=== PATIENT | male | born 1975 | race Two or more races ===

== ENCOUNTER 2024-06-26 20:44 | Inpatient (IN) | payer BC, SELFPAY ==
[2024-06-26 20:45] VITALS: PULSE 102; RESP 18; O2SAT 99
--- NOTE | 2024-06-26 20:45 | PC.NURSE ---
PT BROUGHT TO ER FROM HOME VIA AMBULANCE, PT C/O VOMITING, PT RECENTLY DIAGNOSE OF DIABETES, PT INFORMED ME THAT HE IS BEEN DRINKING A LOT OF WATER ,MILK,AND GATORADE. NO C/O PAIN, NOT ON RESPIRATORY DISTRESS.
[2024-06-26 20:48] VITALS: BMI 29.8
[2024-06-26 21:00] VITALS: BP 155/96; PULSE 98; RESP 18; TEMP 36.9; O2SAT 97
--- NOTE | 2024-06-26 21:09 | PD.EDADULT ---
ED General RME/HPI General Chief complaint: Nausea/Vomiting/Diarrhea Stated complaint: VOMITING Time Seen by Provider: 06/26/24 21:04 Arrival date/time: 06/26/24 20:44 CC: Nausea vomiting HPI patient has been feeling poorly for the last week with excessive urination and thirst, and then started vomiting today. Patient is a diabetic taking oral diabetic medications denies fever chills shortness of breath or difficulty breathing. Related Data Home Medications ?Medication ?Instructions ?Recorded ?Confirmed allopurinol 300 mg tablet 300 mg PO BID 03/06/20 06/26/24 colchicine 0.6 mg tablet 0.6 mg PO BID 03/06/20 06/26/24 empagliflozin 25 mg tablet 25 mg PO DAILY 06/26/24 06/26/24 (Jardiance) glyburide 5 mg tablet 5 mg PO BID 06/26/24 06/26/24 indomethacin 75 mg 75 mg PO DAILY 06/26/24 06/26/24 capsule,extended release insulin lispro 100 unit/mL 10 unit subcut TID 06/26/24 06/26/24 subcutaneous pen (Humalog KwikPen (U-100) Insulin) metformin 1,000 mg tablet 1,000 mg PO BID 06/26/24 06/26/24 semaglutide 2 mg/dose (8 mg/3 mL) 2 mg subcut QWEEK 06/26/24 06/26/24 subcutaneous pen injector (Ozempic) Allergies Allergy/AdvReac Type Severity Reaction Status Date / Time No Known Allergies Allergy Verified 03/06/20 08:13 Review of Systems Review of Systems Narrative Review of Systems: GEN: No fever, no chills, no weight loss EYES: No discharge, no visual changes, no pain HEENT: No ear pain, no congestion, no sore throat PULM: No shortness of breath, no cough, no congestion CV: No chest pain, no dyspnea on exertion, no palpitations GI: + nausea, + vomiting, no diarrhea, no pain, no constipation : No frequency, no urgency, no dysuria MUSC/SKEL: No joint pain, no back pain SKIN: No rash PSYCH: No hallucinations, no depression HEME/LYMPH: No easy bleeding or bruising tendencies NEURO: No weakness, no headache Past Medical History Past Medical History CARDIAC: Negative Congestive Heart Failure RESPIRATORY: Negative Chronic Obstructive Pulmonary Disease (COPD) GENITOURINARY: Negative Renal Disease MUSCULOSKELETAL: Positive Gout ENDOCRINE: Negative Diabetes Mellitus Type 1 or Diabetes Mellitus Type 2 Social History SMOKING STATUS: Never smoker ED Exam Narrative Physical exam: [General: In mild discomfort not in any acute distress Head normocephalic HEENT: Eyes pupils are PERRLA EOMs are intact, mouth: [place] dry swallow symmetrical phonation is normal. All other subsystems of HEENT are within acceptable limits Neck is supple nontender Chest equal chest rise nontender to palpation Respiratory: Clear to auscultation no wheezes crackles or rubs CV: Rate rhythm is regular no murmurs rubs or clicks Abdomen is soft nontender no masses positive bowel sounds all 4 quadrants Back: No CVA tenderness no spinous process tenderness from cervical spine thoracic and lumbar spine Skin: Intact no petechiae rash induration ulceration or crepitus Extremities: Moving all extremity against resistance cap refill less than 2 seconds neurosensory intact Neuro: Awake alert oriented x3 Glascow coma 15 no focal deficits] Course Quality Measures none Orders Category Date Time Status Admit to Inpatient Status Routine Admission 06/26/24 22:06 Active Patient Condition Routine Admission 06/26/24 22:06 Ordered Bedside Blood Glucose Q1H Care 06/26/24 22:08 Active Parts Cataloguer Q4H Care 06/26/24 22:08 Active DKA Protocol QSHIFT Care 06/26/24 22:08 Active Fingerstick [Bedside Blood Glucose] NOW Care 06/26/24 21:17 Active Intake and Output Q1H Care 06/26/24 22:15 Ordered Intake and Output Q1H Care 06/26/24 23:15 Ordered Notify provider NEEDED Care 06/26/24 22:08 Active Saline [Insert IV] NOW Care 06/26/24 21:07 Active Referral Registered Dietitian Routine Cons 06/26/24 22:08 Active XR chest 1V portable Stat Exams 06/26/24 22:08 Ordered Arterial Blood Gas AM DRAW Lab 06/27/24 05:00 Ordered Beta Hydroxybutyrate DAILY Lab 06/28/24 09:00 Ordered Beta Hydroxybutyrate DAILY Lab 06/29/24 09:00 Ordered Beta Hydroxybutyrate DAILY Lab 06/30/24 09:00 Ordered Beta Hydroxybutyrate Stat Lab 06/26/24 21:13 Completed Blood Culture (Lab) Routine Lab 06/26/24 22:08 Ordered CBC DAILY Lab 06/28/24 09:00 Ordered CBC DAILY Lab 06/29/24 09:00 Ordered CBC DAILY Lab 06/30/24 09:00 Ordered CBC DAILY Lab 07/01/24 09:00 Ordered CBC DAILY Lab 07/02/24 09:00 Ordered CBC Stat Lab 06/26/24 21:13 Completed CMP [Comprehensive Metabolic Panel] Stat Lab 06/26/24 21:13 Completed Drug Screen,Urine Stat Lab 06/26/24 21:13 Completed Glycohemoglobin w (eAG) AM DRAW Lab 06/27/24 05:00 Ordered LDH (Lactate Dehydrogenase) AM DRAW Lab 06/27/24 05:00 Ordered Lactate (Lactic Acid) Q4H Lab 06/27/24 02:15 Ordered Lactate (Lactic Acid) Q4H Lab 06/27/24 06:15 Ordered Lactate (Lactic Acid) Q4 Lab 06/27/24 10:15 Ordered Lactate (Lactic Acid) Q4 Lab 06/27/24 14:15 Ordered Lactate (Lactic Acid) Q4 Lab 06/27/24 18:15 Ordered Lactate (Lactic Acid) Q4 Lab 06/27/24 22:15 Ordered Lactate (Lactic Acid) Q4 Lab 06/28/24 02:15 Ordered Lactate (Lactic Acid) Q4 Lab 06/28/24 06:15 Ordered Lactate (Lactic Acid) Q4 Lab 06/28/24 10:15 Ordered Lactate (Lactic Acid) Q4 Lab 06/28/24 14:15 Ordered Lactate (Lactic Acid) Q4 Lab 06/28/24 18:15 Ordered Lactate (Lactic Acid) Q4 Lab 06/28/24 22:15 Ordered Lipase Stat Lab 06/26/24 21:13 Completed MG [Magnesium] Stat Lab 06/26/24 21:13 Completed Magnesium Q4H Lab 06/27/24 02:15 Ordered Magnesium Q4H Lab 06/27/24 06:15 Ordered Magnesium Q4H Lab 06/27/24 10:15 Ordered Magnesium Q4H Lab 06/27/24 14:15 Ordered Magnesium Q4H Lab 06/27/24 18:15 Ordered Magnesium Q4H Lab 06/27/24 22:15 Ordered Magnesium Q4H Lab 06/28/24 02:15 Ordered Magnesium Q4H Lab 06/28/24 06:15 Ordered Magnesium Q4H Lab 06/28/24 10:15 Ordered Magnesium Q4H Lab 06/28/24 14:15 Ordered Magnesium Q4H Lab 06/28/24 18:15 Ordered Magnesium Q4H Lab 06/28/24 22:15 Ordered Phosphorous Q4H Lab 06/27/24 02:15 Ordered Phosphorous Q4H Lab 06/27/24 06:15 Ordered Phosphorous Q4H Lab 06/27/24 10:15 Ordered Phosphorous Q4H Lab 06/27/24 14:15 Ordered Phosphorous Q4H Lab 06/27/24 18:15 Ordered Phosphorous Q4H Lab 06/27/24 22:15 Ordered Phosphorous Q4H Lab 06/28/24 02:15 Ordered Phosphorous Q4H Lab 06/28/24 06:15 Ordered Phosphorous Q4 Lab 06/28/24 10:15 Ordered Phosphorous Q4 Lab 06/28/24 14:15 Ordered Phosphorous Q4 Lab 06/28/24 18:15 Ordered Phosphorous Q4 Lab 06/28/24 22:15 Ordered Renal Function Panel Q4 Lab 06/27/24 02:15 Ordered Renal Function Panel Q4 Lab 06/27/24 06:15 Ordered Renal Function Panel Q4 Lab 06/27/24 10:15 Ordered Renal Function Panel Q4 Lab 06/27/24 14:15 Ordered Renal Function Panel Q4 Lab 06/27/24 18:15 Ordered Renal Function Panel Q4 Lab 06/27/24 22:15 Ordered Renal Function Panel Q4 Lab 06/28/24 02:15 Ordered Renal Function Panel Q4 Lab 06/28/24 06:15 Ordered Renal Function Panel Q4 Lab 06/28/24 10:15 Ordered Renal Function Panel Q4 Lab 06/28/24 14:15 Ordered Renal Function Panel Q4 Lab 06/28/24 18:15 Ordered Renal Function Panel Q4 Lab 06/28/24 22:15 Ordered Urinalysis Stat Lab 06/26/24 21:13 Completed VBG [Venous Blood Gas] Stat Lab 06/26/24 21:13 Completed Colchicine Med 06/27/24 09:00 Ordered 0.6 mg PO BID D5 LR 250ml/hr Med 06/26/24 22:06 Ordered Dextrose 5%-Lactated Ringers [D5-Lr] 1,000 ml IV 250 mls/hr Dextrose 50% Syr [D50w Syringe Abboject] Med 06/26/24 22:06 Ordered 25 ml IV PRNMRX1 PRN Enoxaparin [Lovenox] Med 06/27/24 09:00 Ordered 40 mg SC QDAY INSULIN REG DRIP 100 UNIT in PRE-MIXED @ 0.1 UNIT/KG/HR Med 06/26/24 22:06 Ordered (100ml) Pre-Mixed [Pre-mixed Bag] 1 bag Insulin Reg 100 Units/100 ml [Myxredlin] 100 unit IV 0.1 unit/kg/hr Insulin Reg 100 Units/100 ml [Myxredlin] Med 06/26/24 22:05 Active 100 unit in 100 ml IV 0.1 unit/kg/hr Insulin Regular Med 06/26/24 22:06 Once 8.4 unit IV X1 ONE KCL 20 mEq/L in D5LR Med 06/26/24 22:06 Ordered KCL 20 mEq/L in D5-LR 20 meq in 1,000 ml IV 250 mls/hr KCL 20 mEq/L in LR Med 06/26/24 22:06 Ordered Ringers Lactated 1000 ml [Lactated Ringers] 1,000 ml Pot Chl Additive [KCl Additive] 20 meq IV 250 mls/hr KCL 40 mEq/L in D5LR Med 06/26/24 22:06 Ordered Dextrose 5%-Lactated Ringers [D5-Lr] 1,000 ml Pot Chl Additive [KCl Additive] 40 meq IV 250 mls/hr KCL 40 mEq/L in LR Med 06/26/24 22:06 Ordered Ringers Lactated 1000 ml [Lactated Ringers] 1,000 ml Pot Chl Additive [KCl Additive] 40 meq IV 250 mls/hr LR 250ml/hr Med 06/26/24 22:06 Ordered Ringers Lactated 1000 ml [Lactated Ringers] 1,000 ml IV 250 mls/hr Magnesium Sulfate 2g/50mL Med 06/26/24 22:06 Ordered Magnesium Sulfate 2 GM Ivpb [Magnesium Sulfate Ivpb] 2 gm in 50 ml IV 25 mls/hr POT PHOS 15 mMol in NS 250 ML [Pot Phos 15 mMol in NS Med 06/26/24 22:06 Ordered 250 ml] 15 mmol in 250 ml IV PRN POTASSIUM CHL 10 mEq IVPB [Kcl Ivpb] Med 06/26/24 22:06 Active 10 meq in 100 ml IV 100 mls/hr POTASSIUM CHL 10 mEq IVPB [Kcl Ivpb] Med 06/26/24 22:06 Ordered 10 meq in 100 ml IV PRN Pantoprazole Inj [Protonix Inj] Med 06/27/24 09:00 Ordered 40 mg IVP QDAY Sodium Bicarb 8.4% SYR Med 06/26/24 22:06 Ordered 50 ml IV PRN PRN Sodium Chloride 0.9% 1000 ml [Ns] 1,000 ml Med 06/26/24 21:12 Active IV 250 mls/hr Sodium Chloride 0.9% 1000 ml [Ns] 1,000 ml Med 06/26/24 21:08 Discontinued IV 999 mls/hr Sodium Chloride 0.9% 1000 ml [Ns] 1,000 ml Med 06/26/24 21:08 Discontinued IV 999 mls/hr Sodium Chloride 0.9% 250 ml [Ns] 250 ml Med 06/26/24 22:06 Ordered Sod Phos Additive [NaPhos Additive] 15 mmol IV 62.5 mls/hr allopurinoL [Zyloprim] Med 06/27/24 09:00 Ordered 300 mg PO BID mg Hyd/Al Hyd/Ellis Susp [Maalox Susp] Med 06/26/24 22:06 Active 30 ml PO Q4HR PRN Code Status Routine Oth 06/26/24 22:06 Ordered Oxygen Delivery PRN RT 06/26/24 22:06 Active Vital Signs Vital signs: Vital Signs Temperature 98.4 F 06/26/24 21:00 Pulse Rate 98 06/26/24 21:00 Respiratory Rate 18 06/26/24 21:00 Blood Pressure 155/96 H 06/26/24 21:00 Pulse Oximetry (%) 97 06/26/24 21:00 Oxygen Delivery Method Room Air 06/26/24 21:00 [facility] Patient data External records reviewed:: [facility] previous records Clinical information provided by:: patient Social determinants that could affect healthcare access:: none Patient has the following chronic illnesses:: Type 2 diabetes How is presenting disease/condition affected by chronic disease/condition?: exacerbated by Evaluation data The following diagnostics were reviewed and interpreted by me:: lab results, radiology exam(s) and EKG tracing(s) Lab and/or radiology exams considered but not ordered:: CBC shows no acute leukocytosis anemia thrombocytopenia CMP shows pseudohyponatremia at 126 potassium of 4.8 chloride of 92, CO2 of 15.7 BUN of 23 creatinine 1.5 glucose of 789. Calculated gap of 23 VBG shows a pH of 7.28 pCO2 35 pO2 65 with a base deficit of 10. Beta hydroxybutyrate of 3.9 Urine is negative for UTI UDS is negative. Interpretation Summary: Patient is an early DKA, patient's case discussed with Dr. Bhatt for auxiliary engineer who agrees to accept the patient for admission. Medications Medications considered but not ordered:: None Medication administrations:: Medication Administration History Al Hydrox/Mg Hydrox/Simethicone (Mg Hyd/Al Hyd/Ellis (Maalox Reg) Susp 30 Ml Udc) 30 ml PO Q4HR PRN PRN Reason: Heartburn or Upset Stomach Stop: 07/26/24 22:05 Enoxaparin Sodium (Enoxaparin Sod Inj 40 Mg/0.4 Ml Syringe) 40 mg SC QDAY [facility] Stop: 07/11/24 08:59 Sodium Chloride (Ns) 1,000 mls @ 250 mls/hr IV .Q4H SARANYA Stop: 07/26/24 21:11 Insulin Human Regular (Myxredlin) 100 unit in 100 mls @ 8.392 mls/hr IV .[id number] PRN; Protocol PRN Reason: PER PROTOCOL Stop: 07/26/24 22:04 Potassium Chloride (Kcl Ivpb) 10 meq in 100 mls @ 100 mls/hr IV .Q1H PRN PRN Reason: IF POTASSIUM LESS THAN 3.3 Stop: 07/26/24 22:05 Pantoprazole Sodium (Pantoprazole Inj 40 Mg Vial) 40 mg IVP QDAY [facility] Stop: 07/27/24 08:59 Discontinued Medications Sodium Chloride (Ns) 1,000 mls @ 999 mls/hr IV .Q1H1M ONE Stop: 06/26/24 22:08 Last Admin: 06/26/24 21:12 Dose: 999 mls/hr Documented By: EMY Sodium Chloride (Ns) 1,000 mls @ 999 mls/hr IV .Q1H1M ONE Stop: 06/26/24 22:08 Last Admin: 06/26/24 21:15 Dose: 999 mls/hr Documented By: None Consultations Consultation(s) initiated? (list below): No Diagnosis Differential Diagnosis ED Complaint MDM: DKA hyperglycemia hypoglycemia Most likely diagnosis given after review of the tests above:: DKA Admission Indicated Admission indicated?: indicated Explain why admission is indicated or not indicated:: Requires intensive care monitoring Admission Request Was there a request for admission?: No Disposition Plan Disposition Plan: Admit Medical Decision Making Differential Diagnosis Differential Diagnosis: DKA hyperglycemia hypoglycemia Lab Data 06/26/24 21:13 06/26/24 21:13 Labs: Lab Results 06/26/24 Range/Units 21:13 WBC 8.3 (3.8-10.6) Thou/mm3 RBC 5.27 (4.50-5.90) Miln/mm3 Hgb 15.0 (13.5-16.0) g/dL Hct 42.1 (41.0-53.0) % MCV 80 (80-100) fL MCH 28.5 (25.0-35.0) pg MCHC 35.6 (31.0-37.0) g/dl RDW Std Deviation 34.6 L (35.1-43.9) fL Plt Count 240 (140-440) Thou/mm3 Neut % (Auto) 86 H (37-80) % Lymph % (Auto) 10 (10-50) % [place] % (Auto) 4 (0-12) % Eos % (Auto) 0 (0-10) % Baso % (Auto) 0 (0-2.5) % Neut # (Auto) 7.2 (1.8-7.7) Thou/mm3 Lymph # (Auto) 0.8 L (1.0-4.8) Thou/mm3 [place] # (Auto) 0.3 (0.0-0.8) Thou/mm3 Eos # (Auto) 0.0 (0.0-0.5) Thou/mm3 Baso # (Auto) 0.0 (0.0-0.2) Thou/mm3 Immature Gran # (Auto) 0.04 H (0.00-0.00) Thou/mm3 Absolute Nucleated RBC 0.00 (0.00-0.00) Thou/mm3 Immature Gran % 1 H (0-0) % Nucleated RBC % 0 (0) /100 WBC VBG pH 7.28 L (7.33-7.66) VBG pCO2 35 L (36-56) mmHg VBG pO2 65 H (15-58) mmHg VBG O2 Sat ([place]) 92 L (96-97) % VBG Base Excess -10 L (-3-3) Sodium 126 L (136-145) mMol/L Potassium 4.8 (3.4-5.1) mMol/L Chloride 92 L (98-107) mMol/L Carbon Dioxide 15.7 L (20.0-31.0) mMol/L Anion Gap 18 H (7-16) BUN 23 (9-23) mg/dL Creatinine 1.5 H (0.6-1.3) mg/dL Estim Creat Clear Calc 61.2 (>60) mL/min eGFR 57 L (60 - ) See Note BUN/Creatinine Ratio 15 (12-20) Ratio Glucose 789 H* (74-106) mg/dL Calculated Osmolality 295 (275-295) Calcium 9.7 (8.3-10.6) mg/dL Corrected Calcium 9.7 (8.5-10.1) mg/dL Magnesium 2.3 (1.6-2.6) mg/dL Total Bilirubin 0.6 (0.3-1.2) mg/dL AST 34 (0-34) U/L ALT 49 (10-49) U/L Alkaline Phosphatase 308 H (46-116) U/L Total Protein 7.3 (5.7-8.2) gm/dL Albumin 4.5 (3.5-5.0) gm/dL Globulin 2.8 (2.3-3.5) gm/dL Albumin/Globulin Ratio 1.6 (1.2-2.2) Lipase 44 (12-53) U/L Beta-Hydroxybutyrate/Acetoacetate 3.9 H (<0.6) mmol/L Ur Collection Type Clean Catch Urine Color Colorless A (Lt Yel-Yel) Urine Clarity Clear (Clear/Hazy) Urine pH 6.0 (5.0-7.0) Ur Specific [place] 1.033 (1.001-1.035) Urine Protein Negative (Neg - Trace) Urine Glucose (UA) 4+ A (Negative) Urine Ketones 2+ A (Negative) Urine Blood Negative (Negative) Urine Nitrite Negative (Negative) Urine Bilirubin Negative (Negative) Urine Urobilinogen (Auto) Negative (0.0-1.0) mg/dL Ur Leukocyte Esterase Negative (Negative) Urine RBC 1 (0-3) /hpf Urine WBC < 1 (0-5) /hpf Ur Squamous Epith Cells 0 (0-5) /hpf Urine Bacteria None (None) Urine Opiates Screen Negative (Negative) Urine Fentanyl Screen Negative (Negative) Ur Barbiturates Screen Negative (Negative) U Amphetamin/Meth Scrn Negative (Negative) U Benzodiazepines Scrn Negative (Negative) U Cocaine Metab Screen Negative (Negative) U Marijuana (THC) Screen Negative (Negative) Discharge Plan Plan Patient Disposition: Admit Acute Care w/in Hospital Patient condition on transfer: Stable Prescriptions/Referrals Prescriptions/Med Rec: No Action allopurinol 300 mg Tablet 300 mg PO BID colchicine 0.6 mg Tablet 0.6 mg PO BID glyburide 5 mg tablet 5 mg PO BID Patient Comments: take 1 tablet by mouth twice a day with food metformin 1,000 mg tablet 1,000 mg PO BID Patient Comments: take 1 tablet by mouth twice a day with meals Jardiance 25 mg tablet 25 mg PO DAILY Patient Comments: take 1 tablet by mouth once daily indomethacin 75 mg capsule, extended release 75 mg PO DAILY Patient Comments: take 1 capsule by mouth once daily with food insulin lispro [Humalog KwikPen Insulin] 100 unit/mL insulin pen 10 unit SUBCUT TID Patient Comments: inject 10 units subcutaneously AFTER EACH MEAL three times a day Ozempic 2 mg/dose (8 mg/3 mL) pen injector 2 mg SUBCUT QWEEK Patient Comments: inject 2 milligrams subcutaneously every week Referrals: Imer Roman MD [Primary Care Provider] - In 1 week Problem List Clinical Impression: DKA (diabetic ketoacidosis) Patient/Caregiver Discharge Instructions Print Language: Greenlandic Stand Alone Forms: Marissa Award Info., Patient Portal Info Letter PA/FUR TRIMMING MACHINE OPERATOR Supervising Physician PA/FUR TRIMMING MACHINE OPERATOR Supervising Physician: Alvaro Pretty ENP
[2024-06-26] MEDS: SODIUM CHLORIDE 0.9% 1000 ML 1,000 ML 999 ML IV ×2 (21:12→21:15)
[2024-06-26 21:22] LABS: Basophils % (Auto) 0 % (0-2.5); Eosinophils % (Auto) 0 % (0-10); Hematocrit 42.1 % (41.0-53.0); Immature Granulocytes % (Auto) 1 % (0-0); Immature Granulocytes Auto 0.04 Thou/mm3 (0.00-0.00); Lymphocytes # (Auto) 0.8 Thou/mm3 (1.0-4.8); Lymphocytes % (Auto) 10 % (10-50); Mean Corpuscular HGB Conc 35.6 g/dl (31.0-37.0); Mean Corpuscular Hemoglobin 28.5 pg (25.0-35.0); Mean Corpuscular Volume 80 fL (80-100); Monocytes # (Auto) 0.3 Thou/mm3 (0.0-0.8); Monocytes % (Auto) 4 % (0-12); Neutrophils # (Auto) 7.2 Thou/mm3 (1.8-7.7); Neutrophils % (Auto) 86 % (37-80); Nucleated Red Blood Cell % 0 /100 WBC (0); Platelet Count 240 Thou/mm3 (140-440); RDW Standard Deviation 34.6 fL (35.1-43.9); Red Blood Count 5.27 Miln/mm3 (4.50-5.90); White Blood Count 8.3 Thou/mm3 (3.8-10.6)
[2024-06-26 21:24] LABS: Collection Type, Urine Clean Catch; Squamous Epithelial Cell,Urine 0 /hpf (0-5)
[2024-06-26 21:26] LABS: Base Excess, Venous -10 (-3-3); O2 Saturation, Venous 92 % (96-97); PCO2, Venous 35 mmHg (36-56); PO2, Venous 65 mmHg (15-58); pH, Venous 7.28 (7.33-7.66)
[2024-06-26 21:28] LABS: Bilirubin,Urine Negative (Negative); Blood,Urine Negative (Negative); Clarity,Urine Clear (Clear/Hazy); Color,Urine Colorless (Lt Yel-Yel); Glucose, Urine 4+ (Negative); Ketones,Urine 2+ (Negative); Leukocyte Esterase,Urine Negative (Negative); Nitrite,Urine Negative (Negative); Protein,Urine Negative (Neg - Trace); RBC,Urine 1 /hpf (0-3); Specific Gravity,Urine 1.033 (1.001-1.035); Urobilinogen,Urine Negative mg/dL (0.0-1.0); WBC,Urine < 1 /hpf (0-5)
[2024-06-26 21:32] LABS: Beta Hydroxybutyrate 3.9 mmol/L (<0.6)
[2024-06-26 21:34] LABS: Amphetamine/Methamp Scrn,U Negative (Negative); Barbiturate Screen,Urine Negative (Negative); Benzodiazepines Screen,Urine Negative (Negative); Benzoylecgonine Screen, Ur Negative (Negative); Fentanyl Screen,Urine Negative (Negative); Opiate Screen,Urine Negative (Negative); THC Screen,Urine Negative (Negative)
[2024-06-26 21:57] LABS: Alanine Aminotransferase 49 U/L (10-49); Albumin, Serum 4.5 gm/dL (3.5-5.0); Albumin/Globulin Ratio 1.6 (1.2-2.2); Alkaline Phosphatase 308 U/L (46-116); Anion Gap 18 (7-16); Aspartate Amino Transferase 34 U/L (0-34); BUN/Creatinine Ratio 15 Ratio (12-20); Bilirubin,Total 0.6 mg/dL (0.3-1.2); Blood Urea Nitrogen 23 mg/dL (9-23); Calcium 9.7 mg/dL (8.3-10.6); Calcium (Corrected) 9.7 mg/dL (8.5-10.1); Carbon Dioxide 15.7 mMol/L (20.0-31.0); Chloride 92 mMol/L (98-107); Creatinine (Component) 1.5 mg/dL (0.6-1.3); Estimated Creatinine Clearance 61.2 mL/min (>60); Globulin 2.8 gm/dL (2.3-3.5); Lipase 44 U/L (12-53); Magnesium 2.3 mg/dL (1.6-2.6); Osmolality,Calculated 295 (275-295); Potassium 4.8 mMol/L (3.4-5.1); Sodium 126 mMol/L (136-145); Total Protein 7.3 gm/dL (5.7-8.2); eGFR 57 See Note
[2024-06-26 21:58] LABS: Glucose 789 mg/dL (74-106)
--- NOTE | 2024-06-26 22:08 | XR_ITS ---
Examination: AP chest single view Technique one AP portable upright chest single view Exam date and time: June 26, 2024 10:21 PM Indications: Coughing congestion today Findings: Normal heart size. Lungs are clear. The osseous structures are intact Impression: No active disease
[2024-06-26 22:14] VITALS: PULSE 102
[2024-06-26] MEDS: INSULIN HUM REGULAR 1 UNIT/0.01 ML (PER UNIT) 8.4 UNIT IV (22:27)
[2024-06-26] MEDS: SODIUM CHLORIDE 0.9% 1000 ML 1,000 ML 250 ML IV (22:33)
--- NOTE | 2024-06-26 22:55 | ESHP_ITS ---
Documentation for date of: 06/26/24 [facility] History of Present Illness History of present illness: 48-year-old male with past medical history of type 2 diabetes on insulin presented to the emergency department after a week of feeling unwell and for the last 48 hours unable to keep his food down. He has had multiple episodes of vomiting. Patient stated that a month ago he had a similar episode in the vinny a DKA. He also reports thirst and frequent urination. Denies any recent illnesses, fever chest pain, shortness of breath. Patient is currently on Jardiance 25 mg p.o. and lispro 10 units 3 times daily and also on Ozempic. In the emergency department patient is VBG showed a pH of 7.28, CMP showed sodium of 126, chloride 92, bicarb 15.7, anion gap of 22, creatinine 1.5 with a glucose of around 89 and an elevated beta hydroxybutyrate of 3.9 urine shows evidence of glucose and ketones. Chest x-ray was negative. Review of Systems Review of Systems Systems Reviewed: All systems reviewed, normal except as documented Exam Vital Signs Temp Pulse Resp BP Pulse Ox O2 Del Method 98.4 F 102 H 18 155/96 H 97 Room Air 06/26/24 21:00 06/26/24 22:14 06/26/24 21:00 06/26/24 21:00 06/26/24 21:00 06/26/24 21:00 Narrative Exam Constitutional: AOx3, able to speak full sentences HEENT: NC/AT, PERRLA, oral mucosa moist, neck supple CVS: RRR, S1-S2 present, no murmurs RESP: CTAB GI: non distended, non tender to palpation, NBS MSK: full ROM, no peripheral edema, peripheral pulses present Skin: warm and dry, no rashes Neuro: film librarian II-XII grossly intact. Sensation grossly intact. Results: Labs 06/26/24 21:13 06/26/24 21:13 Labs: Short CBC 06/26/24 Range/Units 21:13 WBC 8.3 (3.8-10.6) Thou/mm3 Hgb 15.0 (13.5-16.0) g/dL Hct 42.1 (41.0-53.0) % Plt Count 240 (140-440) Thou/mm3 BMP 06/26/24 21:13 Sodium 126 L Potassium 4.8 Chloride 92 L Carbon Dioxide 15.7 L BUN 23 Creatinine 1.5 H Glucose 789 H* Calcium 9.7 Liver Function 06/26/24 Range/Units 21:13 Total Bilirubin 0.6 (0.3-1.2) mg/dL AST 34 (0-34) U/L ALT 49 (10-49) U/L Alkaline Phosphatase 308 H (46-116) U/L Albumin 4.5 (3.5-5.0) gm/dL Urine 06/26/24 Range/Units 21:13 Urine Color Colorless A (Lt Yel-Yel) Urine Clarity Clear (Clear/Hazy) Urine pH 6.0 (5.0-7.0) Ur Specific [place] 1.033 (1.001-1.035) Urine Protein Negative (Neg - Trace) Urine Glucose (UA) 4+ A (Negative) ABG Interpretation ABG results: 06/26/24 21:13 VBG pH 7.28 L VBG pCO2 35 L VBG pO2 65 H VBG Base Excess -10 L Quality Measures Quality Measures none Medications Home Medications and Allergies Home Medications ?Medication ?Instructions ?Recorded ?Confirmed ?Type allopurinol 300 mg tablet 300 mg PO BID 03/06/20 06/26/24 History colchicine 0.6 mg tablet 0.6 mg PO BID 03/06/20 06/26/24 History empagliflozin 25 mg tablet 25 mg PO DAILY 06/26/24 06/26/24 History (Jardiance) glyburide 5 mg tablet 5 mg PO BID 06/26/24 06/26/24 History indomethacin 75 mg 75 mg PO DAILY 06/26/24 06/26/24 History capsule,extended release insulin lispro 100 unit/mL 10 unit subcut TID 06/26/24 06/26/24 History subcutaneous pen (Humalog KwikPen (U-100) Insulin) metformin 1,000 mg tablet 1,000 mg PO BID 06/26/24 06/26/24 History semaglutide 2 mg/dose (8 mg/3 mL) 2 mg subcut QWEEK 06/26/24 06/26/24 History subcutaneous pen injector (Ozempic) Allergies Allergy/AdvReac Type Severity Reaction Status Date / Time No Known Allergies Allergy Verified 03/06/20 08:13 Visit Medications Al Hydrox/Mg Hydrox/Simethicone (Mg Hyd/Al Hyd/Ellis (Maalox Reg) Susp 30 Ml Udc) 30 ml PO Q4HR PRN PRN Reason: Heartburn or Upset Stomach Stop: 07/26/24 22:05 Allopurinol (Allopurinol 100 Mg Tablet) 300 mg PO BID SARANYA Stop: 07/27/24 08:59 Colchicine (Colchicine 0.6 Mg Tablet) 0.6 mg PO BID [facility] Stop: 07/27/24 08:59 Dextrose (Dextrose 50%-Water Inj 50 Ml Syringe) 25 ml IV [id number] PRN PRN Reason: Blood Sugar - Low Enoxaparin Sodium (Enoxaparin Sod Inj 40 Mg/0.4 Ml Syringe) 40 mg SC QDAY [facility] Stop: 07/11/24 08:59 Sodium Chloride (Ns) 1,000 mls @ 250 mls/hr IV .Q4H SARANAY Stop: 07/26/24 21:11 Last Admin: 06/26/24 22:33 Dose: 250 mls/hr Insulin Human Regular (Myxredlin) 100 unit in 100 mls @ 8.392 mls/hr IV .[id number] PRN; Protocol PRN Reason: PER PROTOCOL Stop: 07/26/24 22:04 Potassium Chloride (Kcl Ivpb) 10 meq in 100 mls @ 100 mls/hr IV .Q1H PRN PRN Reason: IF POTASSIUM LESS THAN 3.3 Stop: 07/26/24 22:05 Magnesium Sulfate (Magnesium Sulfate Ivpb) 2 gm in 50 mls @ 25 mls/hr IV .Q2H PRN PRN Reason: PER DKA PROTOCOL Stop: 07/26/24 22:05 Insulin Human Regular 100 unit (/ IV Miscellaneous Supplies) 100 mls @ 8.392 mls/hr IV .[id number] PRN; Protocol PRN Reason: PER PROTOCOL Stop: 07/26/24 22:05 Dextrose/Lactated Ringer's (D5-Lr) 1,000 mls @ 250 mls/hr IV .Q4H PRN PRN Reason: PER PROTOCOL Stop: 07/26/24 22:05 Potassium Cl/Dextrose/Lact Ringer's (Kcl 20 Meq/L In D5-Lr) 20 meq in 1,000 mls @ 250 mls/hr IV .Q4H PRN PRN Reason: K LEVEL 3.3 TO 5.3 mM/L Stop: 07/26/24 22:05 Potassium Chloride 40 meq/ (Dextrose/Lactated Ringer's) 1,020 mls @ 250 mls/hr IV .Q4H5M PRN PRN Reason: K LEVEL < 3.3mM/L Stop: 07/26/24 22:05 Potassium Chloride (Kcl Ivpb) 10 meq in 100 mls @ 50 mls/hr IV PRN PRN PRN Reason: K LEVEL 3.3 to 5.3 & BG > 200 Stop: 07/26/24 22:05 Potassium Chloride 20 meq/ (Lactated Ringer's) 1,010 mls @ 250 mls/hr IV .Q4H3M PRN PRN Reason: K LEVEL 3.3 TO 5.3mM/L Stop: 07/26/24 22:05 Potassium Chloride 40 meq/ (Lactated Ringer's) 1,020 mls @ 250 mls/hr IV .Q4H5M PRN PRN Reason: K LEVEL < 3.3 mM/L Stop: 07/26/24 22:05 Potassium Phosphate (Pot Phos 15 Mmol In Ns 250 Ml) 15 mmol in 250 mls @ 62.5 mls/hr IV PRN PRN PRN Reason: Phosphate <= 1mg/dL Stop: 07/26/24 22:05 Lactated Ringer's (Lactated Ringers) 1,000 mls @ 250 mls/hr IV .Q4H PRN PRN Reason: PER PROTOCOL Stop: 06/27/24 22:05 Sodium Phosphate 15 mmol/ (Sodium Chloride) 255 mls @ 62.5 mls/hr IV .Q4H5M PRN PRN Reason: Phosphate <= 1mg/dL and K> than 5.3 Stop: 07/26/24 22:05 Pantoprazole Sodium (Pantoprazole Inj 40 Mg Vial) 40 mg IVP QDAY SARANYA Stop: 07/27/24 08:59 Sodium Bicarbonate (Sodium Bicarb Inj 8.4% Syr 50 Ml Syringe) 50 ml IV PRN PRN PRN Reason: For ph <= to 7.0 Stop: 07/26/24 22:05 Discontinued Medications Sodium Chloride (Ns) 1,000 mls @ 999 mls/hr IV .Q1H1M ONE Stop: 06/26/24 22:08 Last Infusion: 06/26/24 22:27 Dose: Infused Sodium Chloride (Ns) 1,000 mls @ 999 mls/hr IV .Q1H1M ONE Stop: 06/26/24 22:08 Last Infusion: 06/26/24 22:26 Dose: Infused Insulin Human Regular (Insulin Hum Regular 1 Unit/0.01 Ml (Per Unit)) 8.4 unit 0.1 unit/kg (8.4 unit) IV X1 ONE Stop: 06/26/24 22:07 Last Admin: 06/26/24 22:27 Dose: 8.4 unit Assessment & Plan Plan Assessment and plan: [employer]APPER HELPER: Stable Cardio: Stable Pulm: Stable GI: Stable Renal: #High anion gap metabolic acidosis secondary to DKA #Acute kidney injury?secondary to prerenal acidemia due to poor oral intake and vomiting Patient had elevated anion gap with a elevated beta hydroxybutyrate Plan: -Aggressive IV fluids -Monitor urine output -Avoid nephrotoxin -Follow-up CMP Endo: #DKA Etiology likely secondary to noncompliance from antidiabetic medication. Patient is a type II diabetic. Patient is currently on Jardiance however his glucose on admission was above 700 ruling out euglycemic DKA Patient had elevated beta hydroxybutyrate on admission Plan: -Start DKA protocol Heme: Stable I D: Stable Skin/MSK: Stable ICU Health maintenance: Mechanical ventilation: None Sedation: None FEN: N.p.o. DVT ppx: Lovenox GI ppx: Protonix Thomas: None IV lines: 3 Central line: 0 Arterial line: 0 Code status: Full code Dispo: Admit to ICU due to DKA - Patient's care was discussed with my attending physician, Dr. Vanessa Roberto MD Internal Medicine PGY-3 Attending Provider Attestation/Addendum I discussed with and supervised the resident physician who took care of this patient. I agree with the assessment and plan as above. 48-year-old male patient with diabetes mellitus presented with increasing thirst, polyuria. He had nausea and vomiting unable to keep food down. Patient's blood glucose is 789. He has high anion gap. CO2 is less than 16. Patient is being admitted for DKA. Patient mentioned he has constipation since he started Ozempic last September. Last BM was last .
[2024-06-26] MEDS: INSULIN REG 100 UNITS/100 ML 100 UNIT/100 ML BAG 8.392 UNIT IV (23:03)
[2024-06-26 23:09] VITALS: BP 143/81; PULSE 90; RESP 20; O2SAT 99
[2024-06-26 23:17] VITALS: RESP 99
[2024-06-27] VITALS (14 sets, daily range): BP systolic 104–124; BP diastolic 65–83; PULSE 61–97; RESP 14–94; TEMP 36.1–36.8; O2SAT 95–97; BMI 30.5; BMI 30.7
[2024-06-27] MEDS: RINGERS LACTATED 1000 ML 1,000 ML 250 ML IV (01:10)
[2024-06-27 01:51] LABS: Lactate (Lactic Acid) 2.2 mMol/L (0.4-2.0)
[2024-06-27] MEDS: DEXTROSE 5%-LACTATED RINGERS 1,000 ML 250 ML IV (02:15)
[2024-06-27 02:34] LABS: Anion Gap 10 (7-16); BUN/Creatinine Ratio 19 Ratio (12-20); Blood Urea Nitrogen 21 mg/dL (9-23); Calcium 9.3 mg/dL (8.3-10.6); Calcium (Corrected) 9.3 mg/dL (8.5-10.1); Carbon Dioxide 21.1 mMol/L (20.0-31.0); Chloride 109 mMol/L (98-107); Creatinine (Component) 1.1 mg/dL (0.6-1.3); Estimated Creatinine Clearance 83.5 mL/min (>60); Glucose 200 mg/dL (74-106); Magnesium 2.2 mg/dL (1.6-2.6); Osmolality,Calculated 288 (275-295); Phosphorous 2.8 mg/dL (2.4-5.1); Potassium 3.5 mMol/L (3.4-5.1); Sodium 140 mMol/L (136-145); eGFR > 60 See Note
[2024-06-27] MEDS: KCL 20 mEq/L in D5-LR 20 MEQ/1,000 ML BAG 250 MEQ IV ×2 (03:32→06:41)
[2024-06-27 04:49] LABS: Reflex Lactate? Y
[2024-06-27 05:12] LABS: Base Excess 0 (-3-3); HCO3 26 mEq/L (20-26); Inspired Oxygen, FIO2 21 %; O2 Saturation 48 % (91-98); PCO2 47 mmHg (32.0-48.0); pH, Arterial 7.35 (7.35-7.45)
[2024-06-27 05:27] LABS: PO2 27 mmHg (83-108)
[2024-06-27 05:28] LABS: Lactate (Lactic Acid) 1.7 mMol/L (0.4-2.0)
[2024-06-27 05:32] LABS: Allen Test Performed/OK; Puncture Site Left Radial
[2024-06-27 05:51] LABS: Albumin, Serum 3.8 gm/dL (3.5-5.0); Anion Gap 7 (7-16); BUN/Creatinine Ratio 20 Ratio (12-20); Blood Urea Nitrogen 20 mg/dL (9-23); Calcium (Corrected) 9.2 mg/dL (8.5-10.1); Chloride 110 mMol/L (98-107); Estimated Creatinine Clearance 91.8 mL/min (>60); Glucose 139 mg/dL (74-106); LDH (Lactate Dehydrogenase) 123 U/L (120-246); Magnesium 2.1 mg/dL (1.6-2.6); Osmolality,Calculated 284 (275-295); Phosphorous 2.8 mg/dL (2.4-5.1); Potassium 3.7 mMol/L (3.4-5.1); Sodium 140 mMol/L (136-145); eGFR > 60 See Note
--- NOTE | 2024-06-27 06:31 | PD.RESEVENT ---
Documentation for date of: 06/27/24 Event Note Event Note: Patient's anion gap closed x2. Patient will be downgraded to telemetry. Night team accepted downgrade. Will be distributed to hospitalist team. - Patient's care was discussed with my attending physician, Dr. Vanessa Roberto MD Internal Medicine PGY-3
[2024-06-27] MEDS: ENOXAPARIN SOD INJ 40 MG/0.4 ML SYRINGE SC (09:27)
[2024-06-27] MEDS: PANTOPRAZOLE INJ 40 MG VIAL IVP (09:28)
[2024-06-27] MEDS: INSULIN GLARGINE (Lantus) 5 UNIT/0.05 ML (PER 5 UNITS) 15 UNIT SC (09:28)
[2024-06-27] MEDS: COLCHICINE 0.6 MG TABLET PO ×2 (10:26→20:31)
[2024-06-27] MEDS: allopurinoL 100 MG TABLET 300 MG PO ×2 (10:26→20:31)
[2024-06-27 10:47] LABS: Lactate (Lactic Acid) 1.3 mMol/L (0.4-2.0)
[2024-06-27 11:18] LABS: Albumin, Serum 3.5 gm/dL (3.5-5.0); Anion Gap 7 (7-16); BUN/Creatinine Ratio 16 Ratio (12-20); Blood Urea Nitrogen 18 mg/dL (9-23); Calcium 8.5 mg/dL (8.3-10.6); Calcium (Corrected) 8.9 mg/dL (8.5-10.1); Carbon Dioxide 23.7 mMol/L (20.0-31.0); Chloride 109 mMol/L (98-107); Creatinine (Component) 1.1 mg/dL (0.6-1.3); Estimated Creatinine Clearance 83.5 mL/min (>60); Glucose 206 mg/dL (74-106); Osmolality,Calculated 287 (275-295); Phosphorous 2.6 mg/dL (2.4-5.1); Potassium 4.1 mMol/L (3.4-5.1); Sodium 140 mMol/L (136-145); eGFR > 60 See Note
[2024-06-27] MEDS: INSULIN LISPRO (AdmeLOG) 1 UNIT/0.01 ML UNIT SC ×3 (12:50→20:41)
--- NOTE | 2024-06-27 13:49 | ESPR_ITS ---
<Statement entered by Luisa Miller MD - 07/03/24 14:15> I reviewed above note and agree with findings and plans. I have also personally examined the patient with medicine team and went over assessment and plan with medical team including news intern and resident physician. Documentation for date of: 06/27/24 Subjective Subjective Interval history: Patient seen at bedside. Resting comfortably in bed. Been transitioned over to subcutaneous insulin. Able to tolerate p.o. intake well. Counseled on being compliant with diabetic medication. Will continue to monitor glucose levels today and obtain A1c in the a.m. Exam Vital Signs Temp Pulse Resp BP Pulse Ox O2 Del Method 98.3 F 73 18 112/80 96 Room Air 06/27/24 12:51 06/27/24 12:51 06/27/24 12:51 06/27/24 12:51 06/27/24 12:51 06/27/24 12:51 Narrative Exam Constitutional: AOx3, able to speak full sentences HEENT: NC/AT, PERRLA, oral mucosa moist, neck supple CVS: RRR, S1-S2 present, no murmurs RESP: CTAB GI: non distended, non tender to palpation, NBS MSK: full ROM, no peripheral edema, peripheral pulses present Skin: warm and dry, no rashes Neuro: obstetrics gynecology md II-XII grossly intact. Sensation grossly intact. Objective Labs 06/26/24 21:13 06/27/24 10:14 Labs: Laboratory Results - last 24 hr 06/26/24 06/26/24 06/27/24 21:13 22:42 01:48 WBC 8.3 RBC 5.27 Hgb 15.0 Hct 42.1 MCV 80 MCH 28.5 MCHC 35.6 RDW Std Deviation 34.6 L Plt Count 240 Neut % (Auto) 86 H Lymph % (Auto) 10 Cobb % (Auto) 4 Eos % (Auto) 0 Baso % (Auto) 0 Neut # (Auto) 7.2 Lymph # (Auto) 0.8 L Cobb # (Auto) 0.3 Eos # (Auto) 0.0 Baso # (Auto) 0.0 Immature Gran # (Auto) 0.04 H Absolute Nucleated RBC 0.00 Immature Gran % 1 H Nucleated RBC % 0 Puncture Site ABG pH ABG pCO2 ABG pO2 ABG HCO3 ABG O2 Saturation ABG Base Excess VBG pH 7.28 L VBG pCO2 35 L VBG pO2 65 H VBG O2 Sat (Babar) 92 L VBG Base Excess -10 L FiO2 Sodium 126 L 140 D Potassium 4.8 3.5 D Chloride 92 L 109 H Carbon Dioxide 15.7 L 21.1 Anion Gap 18 H 10 BUN 23 21 Creatinine 1.5 H 1.1 Estim Creat Clear Calc 61.2 83.5 eGFR 57 L > 60 BUN/Creatinine Ratio 15 19 Glucose 789 H* [address] Glu mg/dL Cancelled Hemoglobin A1c Cancelled Calculated Osmolality 295 288 Lactic Acid 2.2 H Calcium 9.7 9.3 Corrected Calcium 9.7 9.3 Phosphorus 2.8 Magnesium 2.3 2.2 Total Bilirubin 0.6 AST 34 ALT 49 Alkaline Phosphatase 308 H Lactate Dehydrogenase Total Protein 7.3 Albumin 4.5 4.0 D Globulin 2.8 Albumin/Globulin Ratio 1.6 Lipase 44 Beta-Hydroxybutyrate/Acetoacetate 3.9 H Ur Collection Type Clean Catch Urine Color Colorless A Urine Clarity Clear Urine pH 6.0 Ur Specific [place] 1.033 Urine Protein Negative Urine Glucose (UA) 4+ A Urine Ketones 2+ A Urine Blood Negative Urine Nitrite Negative Urine Bilirubin Negative Urine Urobilinogen (Auto) Negative Ur Leukocyte Esterase Negative Urine RBC 1 Urine WBC < 1 Ur Squamous Epith Cells 0 Urine Bacteria None Urine Opiates Screen Negative Urine Fentanyl Screen Negative Ur Barbiturates Screen Negative U Amphetamin/Meth Scrn Negative U Benzodiazepines Scrn Negative U Cocaine Metab Screen Negative U Marijuana (THC) Screen Negative 06/27/24 06/27/24 06/27/24 05:04 05:23 10:14 WBC RBC Hgb Hct MCV MCH MCHC RDW Std Deviation Plt Count Neut % (Auto) Lymph % (Auto) Cobb % (Auto) Eos % (Auto) Baso % (Auto) Neut # (Auto) Lymph # (Auto) Cobb # (Auto) Eos # (Auto) Baso # (Auto) Immature Gran # (Auto) Absolute Nucleated RBC Immature Gran % Nucleated RBC % Puncture Site Left Radial ABG pH 7.35 ABG pCO2 47 ABG pO2 27 L* ABG HCO3 26 ABG O2 Saturation 48 L ABG Base Excess 0 VBG pH VBG pCO2 VBG pO2 VBG O2 Sat (Babar) VBG Base Excess FiO2 21 Sodium 140 140 Potassium 3.7 4.1 Chloride 110 H 109 H Carbon Dioxide 23.0 23.7 Anion Gap 7 7 BUN 20 18 Creatinine 1.0 1.1 Estim Creat Clear Calc 91.8 83.5 eGFR > 60 > 60 BUN/Creatinine Ratio 20 16 Glucose 139 H D [address] Glu mg/dL Cancelled Hemoglobin A1c Cancelled Calculated Osmolality 284 287 Lactic Acid 1.7 1.3 Calcium 9.0 8.5 Corrected Calcium 9.2 8.9 Phosphorus 2.8 2.6 Magnesium 2.1 2.0 Total Bilirubin AST ALT Alkaline Phosphatase Lactate Dehydrogenase 123 Total Protein Albumin 3.8 3.5 Globulin Albumin/Globulin Ratio Lipase Beta-Hydroxybutyrate/Acetoacetate Ur Collection Type Urine Color Urine Clarity Urine pH Ur Specific [place] Urine Protein Urine Glucose (UA) Urine Ketones Urine Blood Urine Nitrite Urine Bilirubin Urine Urobilinogen (Auto) Ur Leukocyte Esterase Urine RBC Urine WBC Ur Squamous Epith Cells Urine Bacteria Urine Opiates Screen Urine Fentanyl Screen Ur Barbiturates Screen U Amphetamin/Meth Scrn U Benzodiazepines Scrn U Cocaine Metab Screen U Marijuana (THC) Screen ABG Interpretation ABG results: 06/26/24 06/27/24 21:13 05:04 ABG pH 7.35 ABG pCO2 47 ABG pO2 27 L* ABG HCO3 26 ABG O2 Saturation 48 L ABG Base Excess 0 VBG pH 7.28 L VBG pCO2 35 L VBG pO2 65 H VBG Base Excess -10 L Quality Measures Quality Measures none Assessment & Plan Assessment Current Active Medications: Generic Name Dose Route Start Last Admin Trade Name Freq PRN Reason Stop Dose Admin Al Hydrox/Mg Hydrox/Simethicone 30 ml 06/26/24 22:06 Mg Hyd/Al Hyd/Ellis (Maalox Reg) Susp 30 Ml Udc PO 07/26/24 22:05 Q4HR PRN Heartburn or Upset Stomach Allopurinol 300 mg 06/27/24 09:00 06/27/24 10:26 Allopurinol 100 Mg Tablet PO 07/27/24 08:59 300 mg BID SARANYA Administration Colchicine 0.6 mg 06/27/24 09:00 06/27/24 10:26 Colchicine 0.6 Mg Tablet PO 07/27/24 08:59 0.6 mg BID SARANYA Administration Dextrose 25 ml 06/26/24 22:06 Dextrose 50%-Water Inj 50 Ml Syringe IV [id number] PRN Blood Sugar - Low Dextrose 25 ml 06/27/24 06:28 Dextrose 50%-Water Inj 50 Ml Syringe IV 07/27/24 06:27 Q15MIN PRN BG 50-70 responsive npo pt Dextrose 50 ml 06/27/24 06:28 Dextrose 50%-Water Inj 50 Ml Syringe IV 07/27/24 06:27 Q15MIN PRN BG <50 OR BG <70 & pt unresponsive Enoxaparin Sodium 40 mg 06/27/24 09:00 06/27/24 09:27 Enoxaparin Sod Inj 40 Mg/0.4 Ml Syringe SC 07/11/24 08:59 40 mg QDAY SARANYA Administration Glucagon 1 mg 06/27/24 06:28 Glucagon Inj 1 Mg Vial IM Q15MIN PRN BG <70, and no IV access Potassium Chloride 10 meq in 100 mls @ 100 mls/hr 06/26/24 22:06 Kcl Ivpb IV 07/26/24 22:05 .Q1H PRN IF POTASSIUM LESS THAN 3.3 Magnesium Sulfate 2 gm in 50 mls @ 25 mls/hr 06/26/24 22:06 Magnesium Sulfate Ivpb IV 07/26/24 22:05 .Q2H PRN PER DKA PROTOCOL Dextrose/Lactated Ringer's 1,000 mls @ 250 mls/hr 06/26/24 22:06 06/27/24 06:40 D5-Lr IV 07/26/24 22:05 Infused .Q4H PRN Infusion PER PROTOCOL Potassium Cl/Dextrose/Lact Ringer's 20 meq in 1,000 mls @ 250 mls/hr 06/26/24 22:06 06/27/24 06:41 Kcl 20 Meq/L In D5-Lr IV 07/26/24 22:05 250 mls/hr .Q4H PRN Administration K LEVEL 3.3 TO 5.3 mM/L Potassium Chloride 40 meq/ 1,020 mls @ 250 mls/hr 06/26/24 22:06 Dextrose/Lactated Ringer's IV 07/26/24 22:05 .Q4H5M PRN K LEVEL < 3.3mM/L Potassium Chloride 10 meq in 100 mls @ 50 mls/hr 06/26/24 22:06 Kcl Ivpb IV 07/26/24 22:05 PRN PRN K LEVEL 3.3 to 5.3 & BG > 200 Potassium Chloride 20 meq/ 1,010 mls @ 250 mls/hr 06/26/24 22:06 Lactated Ringer's IV 07/26/24 22:05 .Q4H3M PRN K LEVEL 3.3 TO 5.3mM/L Potassium Chloride 40 meq/ 1,020 mls @ 250 mls/hr 06/26/24 22:06 Lactated Ringer's IV 07/26/24 22:05 .Q4H5M PRN K LEVEL < 3.3 mM/L Potassium Phosphate 15 mmol in 250 mls @ 62.5 mls/hr 06/26/24 22:06 Pot Phos 15 Mmol In Ns 250 Ml IV 07/26/24 22:05 PRN PRN Phosphate <= 1mg/dL Lactated Ringer's 1,000 mls @ 250 mls/hr 06/26/24 22:06 06/27/24 02:18 Lactated Ringers IV 06/27/24 22:05 0 mls/hr .Q4H PRN Infusion PER PROTOCOL Sodium Phosphate 15 mmol/ 255 mls @ 62.5 mls/hr 06/26/24 22:06 Sodium Chloride IV 07/26/24 22:05 .Q4H5M PRN Phosphate <= 1mg/dL and K> than 5.3 Insulin Glargine 15 unit 06/27/24 09:00 06/27/24 09:28 Insulin Glargine (Lantus) 5 Unit/0.05 Ml (Per 5 Units) SC 07/27/24 08:59 15 unit QDAY SARANYA Administration Insulin Human Lispro 0 unit 06/27/24 11:30 06/27/24 12:50 Insulin Lispro (Admelog) 1 Unit/0.01 Ml Unit SC 07/27/24 11:29 6 unit ACHS SARANYA Administration Protocol Pantoprazole Sodium 40 mg 06/27/24 09:00 06/27/24 09:28 Pantoprazole Inj 40 Mg Vial IVP 07/27/24 08:59 40 mg QDAY SARANYA Administration Sodium Bicarbonate 50 ml 06/26/24 22:06 Sodium Bicarb Inj 8.4% Syr 50 Ml Syringe IV 07/26/24 22:05 PRN PRN For ph <= to 7.0 Plan Mr. Germain is a 48-year-old male with past medical history of gout and type 2 diabetes mellitus who presented to [facility] with a chief complaint of multiple episodes of nonbilious vomiting and malaise. Patient was admitted to [facility] for further management of DKA. #High anion gap metabolic acidosis secondary to DKA (resolved) #Acute kidney injury?secondary to prerenal acidemia due to poor oral intake and vomiting Patient had elevated anion gap with a elevated beta hydroxybutyrate Plan: -Aggressive IV fluids -Monitor urine output -Avoid nephrotoxin -Follow-up CMP #DKA (resolved) Etiology likely secondary to noncompliance from antidiabetic medication. Patient is a type II diabetic. Patient is currently on Jardiance however his glucose on admission was above 700 ruling out euglycemic DKA Patient had elevated beta hydroxybutyrate on admission Plan: DKA protocol discontinued A1c pending in the a.m. Will monitor blood glucose today and obtain optimum insulin regimen for outpatient setting Health Maintenance: DVT prophylaxis: Lovenox GI prophylaxis: None Diet: Carb consistent Thomas: Not indicated Lines: Peripheral IVs Supplemental O2: None CODE STATUS: Full code Disposition: Admitted to med/tele for management of DKA Plan of care discussed with supervising attending Dr. Paul Dennis M.D. PGY-3
--- NOTE | 2024-06-27 14:30 | PC.NURSE ---
PT TAKEN UP TO FLOOR CONNECTED TO TELE WITHOUT INCIDENT BY THIS RN
[2024-06-28] VITALS: BP 114/79; PULSE 72; RESP 17; TEMP 36.1; O2SAT 95
[2024-06-28 00:55] VITALS: PULSE 71; RESP 20; RESP 95
[2024-06-28 04:00] VITALS: BP 107/67; PULSE 71; RESP 17; TEMP 36.8; O2SAT 95
[2024-06-28 06:01] LABS: Basophils % (Auto) 0 % (0-2.5); Eosinophils # (Auto) 0.2 Thou/mm3 (0.0-0.5); Eosinophils % (Auto) 4 % (0-10); Hematocrit 37.1 % (41.0-53.0); Hemoglobin 12.6 g/dL (13.5-16.0); Immature Granulocytes % (Auto) 1 % (0-0); Immature Granulocytes Auto 0.03 Thou/mm3 (0.00-0.00); Lymphocytes # (Auto) 2.7 Thou/mm3 (1.0-4.8); Lymphocytes % (Auto) 48 % (10-50); Mean Corpuscular Hemoglobin 28.4 pg (25.0-35.0); Mean Corpuscular Volume 84 fL (80-100); Monocytes # (Auto) 0.4 Thou/mm3 (0.0-0.8); Monocytes % (Auto) 7 % (0-12); Neutrophils # (Auto) 2.2 Thou/mm3 (1.8-7.7); Neutrophils % (Auto) 40 % (37-80); Nucleated Red Blood Cell % 0 /100 WBC (0); Platelet Count 190 Thou/mm3 (140-440); RDW Standard Deviation 38.6 fL (35.1-43.9); Red Blood Count 4.44 Miln/mm3 (4.50-5.90); White Blood Count 5.5 Thou/mm3 (3.8-10.6)
[2024-06-28 07:00] LABS: Alanine Aminotransferase 45 U/L (10-49); Albumin, Serum 3.3 gm/dL (3.5-5.0); Albumin/Globulin Ratio 1.6 (1.2-2.2); Alkaline Phosphatase 165 U/L (46-116); Anion Gap 7 (7-16); Aspartate Amino Transferase 43 U/L (0-34); BUN/Creatinine Ratio 12 Ratio (12-20); Bilirubin,Total 0.5 mg/dL (0.3-1.2); Blood Urea Nitrogen 14 mg/dL (9-23); Calcium 9.6 mg/dL (8.3-10.6); Calcium (Corrected) 10.2 mg/dL (8.5-10.1); Carbon Dioxide 26.6 mMol/L (20.0-31.0); Chloride 107 mMol/L (98-107); Creatinine (Component) 1.2 mg/dL (0.6-1.3); Estimated Creatinine Clearance 77.5 mL/min (>60); Globulin 2.1 gm/dL (2.3-3.5); Glucose 178 mg/dL (74-106); Osmolality,Calculated 285 (275-295); Potassium 4.7 mMol/L (3.4-5.1); Sodium 141 mMol/L (136-145); Total Protein 5.4 gm/dL (5.7-8.2); eGFR > 60 See Note
[2024-06-28 07:28] LABS: Misc Send Out* See Sep Rpt
[2024-06-28 08:00] VITALS: BP 117/73; PULSE 77; RESP 18; TEMP 36.2; O2SAT 98
[2024-06-28] MEDS: INSULIN GLARGINE (Lantus) 5 UNIT/0.05 ML (PER 5 UNITS) 15 UNIT SC (08:07)
[2024-06-28] MEDS: INSULIN LISPRO (AdmeLOG) 1 UNIT/0.01 ML UNIT SC (08:07)
[2024-06-28] MEDS: allopurinoL 100 MG TABLET 300 MG PO (08:08)
[2024-06-28] MEDS: PANTOPRAZOLE INJ 40 MG VIAL IVP (08:08)
[2024-06-28] MEDS: ENOXAPARIN SOD INJ 40 MG/0.4 ML SYRINGE SC (08:08)
[2024-06-28] MEDS: COLCHICINE 0.6 MG TABLET PO (08:08)
--- NOTE | 2024-06-28 11:52 | PC.SS ---
SS met with patient regarding his d/c plan. Pt is alert/oriented. Pt was admitted for DKA. SS spoke to [employer] form pt registration to update patient's facesheet with his correct demographic and contact information. Pt resides with and kids. Pt has a 2 wheel walker and cane which he uses when he has gout flare ups. Patient's assists him with ADLs when needed. Pt named his , Pema Iniguez, phone# [phone] medical decision maker if he is unable. Patient?s choice is to return home upon d/c. Pt states he is diabetic, has a glucometer, and test strips. SS received referral for knowledge deficit needs. Pt states he has transportation and is requesting to speak with dietitian about insulin pump. SS has informed bedside nurse, Afshan. Pt states he has follow up appointment scheduled with PCP Jun at 4pm. D/C plan: Return home Next of Kin: Pema Iniguez, , phone# [phone] PCP: Dr. Imer Roman Address: [address] [place] [id number]
[2024-06-28 12:00] VITALS: BP 119/86; PULSE 81; RESP 18; TEMP 36.4; O2SAT 96
--- NOTE | 2024-06-28 14:46 | ESDS_ITS ---
<Statement entered by Luisa Miller MD - 07/03/24 14:16> I reviewed above note and agree with findings and plans. I have also personally examined the patient with medicine team and went over assessment and plan with medical team including internal wholesaler and resident physician. Planned Discharge Date 06/28/24 DS: Providers Provider Date of admission: 06/26/24 22:06 Primary care physician: Imer Roman MD Admitting Provider: Clemente Mendez MD Attending Provider on Admission: Luisa Miller MD Consults: 06/26/24 22:08 Referral Registered Dietitian Routine Comment: 06/27/24 10:18 Referral Registered Dietitian Routine Comment: 06/27/24 14:58 [facility] Referral - Knowledge Deficit Routine Comment: Positive screening for knowledge deficit needs. Attending Provider on DC: Darnell Dennis MD Discharging Provider: Darnell Dnenis MD DS: Diagnosis Problem List Completed Was Problem List Reviewed/Reconciled?: Yes Hospital Course Hospital Course Hospital course: Mr. Iniguez is a 48-year-old male with past medical history of gout and type 2 diabetes mellitus who presented to [facility] with a chief complaint of multiple episodes of nonbilious vomiting and malaise. Patient was admitted to [facility] for further management of DKA. Patient was placed on an insulin drip and admitted to the ICU for few hours until his anion gap had closed twice and he had received subcutaneous insulin and was able to tolerate a p.o. diet so was downgraded to telemetry floors. Patient remained hospitalized to further monitor for symptoms of DKA and was able to tolerate p.o. intake without complaints. No adjustments were made to his insulin regimen due to the fact that he is scheduled to meet with his primary care physician on 29 June. Recommended the patient to be compliant with his diabetic medications to prevent further complications of type 2 diabetes. Plan for discharge discussed with supervising attending Dr. Paul Dennis M.D. PGY-3 #High anion gap metabolic acidosis secondary to DKA (resolved) #Acute kidney injury?secondary to prerenal acidemia due to poor oral intake and vomiting Patient had elevated anion gap with a elevated beta hydroxybutyrate Plan: -Aggressive IV fluids -Monitor urine output -Avoid nephrotoxin -Follow-up CMP #DKA (resolved) Etiology likely secondary to noncompliance from antidiabetic medication. Patient is a type II diabetic. Patient is currently on Jardiance however his glucose on admission was above 700 ruling out euglycemic DKA Patient had elevated beta hydroxybutyrate on admission Plan: DKA protocol discontinued A1c pending in the a.m. Will monitor blood glucose today and obtain optimum insulin regimen for outpatient setting Health Maintenance: DVT prophylaxis: Lovenox GI prophylaxis: None Diet: Carb consistent Thomas: Not indicated Lines: Peripheral IVs Supplemental O2: None CODE STATUS: Full code Disposition: Admitted to med/tele for management of DKA Plan of care discussed with supervising attending Dr. Paul Dennis M.D. PGY-3 Status at Discharge Functional status at discharge: independent ambulation Overall status at discharge: patient is back to baseline Time Spent with Patient Time attestation: Total time spent providing and/or coordinating discharge services: Time spent: Greater than 30 minutes Exam Vital Signs Temp Pulse Resp BP Pulse Ox O2 Del Method 97.5 F 81 18 119/86 H 96 Room Air 06/28/24 12:00 06/28/24 12:00 06/28/24 12:00 06/28/24 12:00 06/28/24 12:00 06/28/24 12:00 Discharge Plan Plan Patient Disposition: HOME (Self Care) Patient condition on transfer: Stable Care Plan Goals: -Continue same insulin regimen as you where before, and follow up utpatient with PCP tomorrow (as scheduled) -Important to not miss insulin doses and adhere to diabetic diet. -If nausea, vomiting, abdominal pain return, please come back to ER. Prescriptions/Referrals Prescriptions/Med Rec: Continued allopurinol 300 mg Tablet 300 mg PO BID colchicine 0.6 mg Tablet 0.6 mg PO BID glyburide 5 mg tablet 5 mg PO BID Patient Comments: take 1 tablet by mouth twice a day with food metformin 1,000 mg tablet 1,000 mg PO BID Patient Comments: take 1 tablet by mouth twice a day with meals Jardiance 25 mg tablet 25 mg PO DAILY Patient Comments: take 1 tablet by mouth once daily indomethacin 75 mg capsule, extended release 75 mg PO DAILY Patient Comments: take 1 capsule by mouth once daily with food insulin lispro [Humalog KwikPen Insulin] 100 unit/mL insulin pen 10 unit SUBCUT TID Patient Comments: inject 10 units subcutaneously AFTER EACH MEAL three times a day Ozempic 2 mg/dose (8 mg/3 mL) pen injector 2 mg SUBCUT QWEEK Patient Comments: inject 2 milligrams subcutaneously every week Referrals: Imer Roman MD [Primary Care Provider] - Patient/Caregiver Discharge Instructions Education Materials: Understanding Carbohydrates, Eating Out When You Have Diabetes, Diabetic Ketoacidosis Print Language: Thai Stand Alone Forms: Marissa Award Info., Patient Portal Info Letter Discharge Order Discharge Orders: Discharge (Routine); Ordered 06/28/24 Ordered By: Darnell Dennis Quality Discharge Quality Measures none
== END 2024-06-28 12:32 | disposition home or self-care (01) | DRG 638 ==
LOC: SERX 22:15 → SERHOLD 23:02 → S3SX 06-27 14:15
PROVIDERS: Registered Nurse General Practice; Student in an Organized Health Care Education/Training Program; Admitting Provider Internal Medicine; Emergency Provider Emergency Medicine; PCP Internal Medicine Hospice and Palliative Medicine; Visit Provider Internal Medicine
DX: E11.10 Type 2 diabetes mellitus with ketoacidosis without coma (principal); N17.9 Acute kidney failure, unspecified; M10.9 Gout, unspecified; Z79.4 Long term (current) use of insulin; Z91.199 Patient's noncompliance with other medical treatment and regimen due to unspecified reason; K59.00 Constipation, unspecified
CPT/HCPCS: 36415; 36600; 71045; 80053; 80069; 80307; 81001; 82010; 82803; 83036; 83605; 83615; 83690; 83735; 85025; 87040; 93005; 93225; 96361; 96365; 96366; 96372; 96375; 99285; J1650; J1815; J2470; J3480; J7030; J7120; J7121; A9270

== ENCOUNTER 2024-11-28 18:38 | Emergency (ER) | payer BC, SELFPAY ==
[2024-11-28 18:57] VITALS: BP 154/91; PULSE 73; RESP 19; TEMP 36.7; O2SAT 97
[2024-11-28 18:59] VITALS: BMI 31.2
--- NOTE | 2024-11-28 19:14 | PD.EDRECHK ---
ED Recheck Abnl Lab Rx-RME/HPI General Chief Complaint: General Adult/Misc Complain Stated Complaint: High blood glucose (reads HI) Time Seen by Provider: 11/28/24 19:06 Arrival date/time: 11/28/24 18:38 49M with history of gout and DM presents to ED with 1 week of worsening blood glucose control, as well as increased thirst and urination. Patient was here earlier this here for DKA and patient states it feels similar. Separately, patient is having a gout flare up in his R knee. Also, patient has had 1 week of cough and sore throat. Limitations: no limitations Related Data Home Medications ?Medication ?Instructions ?Recorded ?Confirmed allopurinol 300 mg tablet 300 mg PO BID 03/06/20 06/26/24 colchicine 0.6 mg tablet 0.6 mg PO BID 03/06/20 06/26/24 empagliflozin 25 mg tablet 25 mg PO DAILY 06/26/24 06/26/24 (Jardiance) glyburide 5 mg tablet 5 mg PO BID 06/26/24 06/26/24 indomethacin 75 mg 75 mg PO DAILY 06/26/24 06/26/24 capsule,extended release insulin lispro 100 unit/mL 10 unit subcut TID 06/26/24 06/26/24 subcutaneous pen (Humalog KwikPen (U-100) Insulin) metformin 1,000 mg tablet 1,000 mg PO BID 06/26/24 06/26/24 semaglutide 2 mg/dose (8 mg/3 mL) 2 mg subcut QWEEK 06/26/24 06/26/24 subcutaneous pen injector (Ozempic) Allergies Allergy/AdvReac Type Severity Reaction Status Date / Time No Known Allergies Allergy Verified 11/28/24 18:42 Review of Systems Review of Systems Systems Reviewed: All systems reviewed, normal except as documented Constitutional Constitutional: Reports system reviewed and no additional complaints, except as documented, Denies fever(s) and Denies headache(s) ENT Ears, Nose, Mouth, and Throat: Reports as per HPI, Denies disequilibrium, Reports dry mouth, Denies headache(s) and Reports sore throat Cardiovascular Cardiovascular: Reports system reviewed and no additional complaints, except as documented, Denies chest pain and Denies dyspnea Respiratory Respiratory: Reports system reviewed and no additional complaints, except as documented, Reports as per HPI, Reports cough and Denies dyspnea Gastrointestinal Gastrointestinal: Reports system reviewed and no additional complaints, except as documented, Denies abdominal pain, Denies nausea and Denies vomiting Genitourinary Genitourinary: Reports as per HPI and Reports urinary frequency Musculoskeletal Musculoskeletal: Reports as per HPI and Reports arthralgias Neurologic Neurologic: Reports system reviewed and no additional complaints, except as documented, Denies confusion, Denies disequilibrium and Denies headache(s) Psychiatric Psychiatric: Denies confusion Past Medical History Past Medical History CARDIAC: Negative Congestive Heart Failure RESPIRATORY: Negative Chronic Obstructive Pulmonary Disease (COPD) GENITOURINARY: Negative Renal Disease MUSCULOSKELETAL: Positive Gout (since 2017) ENDOCRINE: Positive Diabetes Mellitus Type 2; Negative Diabetes Mellitus Type 1 Social History SMOKING STATUS: Never smoker ED Exam General Limitations: Present no limitations General appearance: Present alert and in no apparent distress Head Head exam: Present atraumatic Eye Eye exam: Present normal appearance, PERRL and EOMI ENT ENT exam: Present normal exam, normal oropharynx and mucous membranes moist Neck Neck exam: Present normal inspection, full ROM and trachea midline Chest Chest inspection: Present normal inspection and symmetric chest wall rise Respiratory Respiratory exam: Present normal lung sounds bilaterally Cardiovascular Cardiovascular exam: Present regular rate, normal rhythm and normal heart sounds Abdominal Exam Abdominal exam: Present soft and normal bowel sounds Extremities Exam Extremities exam: Present normal inspection and full ROM Back Exam Back exam: Present normal inspection and full ROM Neurological Exam Neurological exam: Present alert, oriented X3 and CN II-XII intact Psychiatric Psychiatric exam: Present normal affect and normal mood Skin Skin exam: Present warm, dry, intact and normal color Course Quality Measures none Orders Category Date Time Status Bedside COVID-19 Antigen Test NOW Care 11/28/24 22:52 Active Bedside Influenza A&B Antigen Test NOW Care 11/28/24 22:53 Completed Blood glucose [Bedside Blood Glucose] NOW Care 11/28/24 18:45 Active Insert IV NOW Care 11/28/24 19:07 Active A1C [Glycohemoglobin w (eAG)] Stat Lab 11/28/24 20:30 Completed Beta Hydroxybutyrate Stat Lab 11/28/24 20:30 Completed CBC Stat Lab 11/28/24 20:30 Completed CMP [Comprehensive Metabolic Panel] Stat Lab 11/28/24 20:30 Completed Drug Screen,Urine Stat Lab 11/28/24 22:04 Completed Lipase Stat Lab 11/28/24 20:30 Completed Mag [Magnesium] Stat Lab 11/28/24 20:30 Completed Phosphorous Stat Lab 11/28/24 20:30 Completed Strep A Rapid Stat Lab 11/28/24 22:55 Completed Uric Acid Stat Lab 11/28/24 20:30 Completed Urinalysis, C/S if Indicated Stat Lab 11/28/24 22:04 Completed VBG [Venous Blood Gas] Stat Lab 11/28/24 20:30 Completed Insulin Regular Med 11/28/24 21:21 Discontinued 10 unit SC X1 ONE Ketorolac Inj [Toradol Inj] Med 11/28/24 19:07 Discontinued 30 mg IVP X1 ONE Ringers Lactated 1000 ml [Lactated Ringers] 1,000 ml Med 11/28/24 19:07 Discontinued IV 999 mls/hr Sodium Chloride 0.9% 1000 ml [Ns] 1,000 ml Med 11/28/24 21:27 Discontinued IV 999 mls/hr Vital Signs Vital signs: Vital Signs Temperature 98.1 F 11/28/24 18:57 Pulse Rate 73 11/28/24 18:57 Respiratory Rate 19 11/28/24 18:57 Blood Pressure 154/91 H 11/28/24 18:57 Pulse Oximetry (%) 97 11/28/24 18:57 Oxygen Delivery Method Room Air 11/28/24 18:57 O2 at 97% on RA and WNLs Recheck / Abnormal Lab / Rx MDM Narrative MDM Narrative:: 49M with history of gout and DM presents to ED with 1 week of worsening blood glucose control, as well as increased thirst and urination. Patient was here earlier this here for DKA and patient states it feels similar. Separately, patient is having a gout flare up in his R knee. Also, patient has had 1 week of cough and sore throat. Physical exam reveals normal WOB. No obvious R knee swelling, tenderness, or redness. Gait normal. Normal WOB. Clear lungs and oropharynx. Patient is afebrile, calm, and alert. No leukocytosis. Swabs neg. CMP remarkable for 600+ glucose, but normal anion gap. Beta hydroxy and blood pH normal. Meds reduced BS to low 400s. Likely viral URI. Uric acid normal, so no gout flare. Patient data External records reviewed:: [facility] previous records Clinical information provided by:: patient Social determinants that could affect healthcare access:: none Patient has the following chronic illnesses:: none How is presenting disease/condition affected by chronic disease/condition?: no chronic disease Evaluation data The following diagnostics were reviewed and interpreted by me:: lab results Lab and/or radiology exams considered but not ordered:: ordered Interpretation Summary: above Medications / Prescriptions Medications or Prescriptions considered but not ordered:: ordered Medication administrations:: Medication Administration History Discontinued Medications Lactated Ringer's (Lactated Ringers) 1,000 mls @ 999 mls/hr IV .Q1H1M ONE Stop: 11/28/24 20:07 Last Infusion: 11/28/24 21:50 Dose: Infused Documented By: Admin: 11/28/24 20:49 Dose: 999 mls/hr Documented By: OA Sodium Chloride (Ns) 1,000 mls @ 999 mls/hr IV .Q1H1M ONE Stop: 11/28/24 22:27 Last Infusion: 11/28/24 23:55 Dose: Infused Documented By: Admin: 11/28/24 22:53 Dose: 999 mls/hr Documented By: Insulin Human Regular (Insulin Hum Regular 1 Unit/0.01 Ml (Per Unit)) 10 unit SC X1 ONE Stop: 11/28/24 21:22 Last Admin: 11/28/24 22:38 Dose: 10 unit Documented By: Co-signed By: SARAH Ketorolac Tromethamine (Ketorolac Inj 30 Mg/Ml Vial) 30 mg IVP X1 ONE Stop: 11/28/24 19:08 Last Admin: 11/28/24 22:48 Dose: 30 mg Documented By: NERI above Consultations Consultation(s) initiated? (list below): No Diagnosis Recheck Differential Diagnosis: encounter for medication refill, encounter for wound recheck, encounter for recheck of burn, encounter for removal of sutures, warfarin-induced coagulopathy and other (DKA, hyperglycemia, gout flare, URI) Most likely diagnosis given after review of the tests above:: hyperglycemia and URI Admission Indicated Admission indicated?: not indicated Admission Request Was there a request for admission?: No Disposition Plan Disposition Plan: Discharge Discharge Attestation Discharge Attestation: The patient and all family members were given an opportunity to ask questions and understood the discharge instructions. Discharge instructions specifically effects, indications for sooner follow up or return to the emergency department, and the expected course of current diagnosis. Patient condition: Stable Discharge Plan Plan Patient Disposition: HOME (Self Care) Discharge Disposition comment: Stable Prescriptions/Referrals Prescriptions/Med Rec: No Action allopurinol 300 mg Tablet 300 mg PO BID colchicine 0.6 mg Tablet 0.6 mg PO BID glyburide 5 mg tablet 5 mg PO BID Patient Comments: take 1 tablet by mouth twice a day with food metformin 1,000 mg tablet 1,000 mg PO BID Patient Comments: take 1 tablet by mouth twice a day with meals Jardiance 25 mg tablet 25 mg PO DAILY Patient Comments: take 1 tablet by mouth once daily indomethacin 75 mg capsule, extended release 75 mg PO DAILY Patient Comments: take 1 capsule by mouth once daily with food insulin lispro [Humalog KwikPen Insulin] 100 unit/mL insulin pen 10 unit SUBCUT TID Patient Comments: inject 10 units subcutaneously AFTER EACH MEAL three times a day Ozempic 2 mg/dose (8 mg/3 mL) pen injector 2 mg SUBCUT QWEEK Patient Comments: inject 2 milligrams subcutaneously every week Referrals: No Primary/Family,Physician [Primary Care Provider] - In 1 week Problem List Clinical Impression: Hyperglycemia due to diabetes mellitus, URI (upper respiratory infection) Patient/Caregiver Discharge Instructions Education Materials: ED URI, Viral, No Abx (Adult) Additional Instructions: Please follow-up with PCP within 24-48 hours and return immediately if symptoms worsen. Ibuprofen/Tylenol can be used simultaneously for greater fever/pain control. Benadryl is good for cough, congestion, and sleep. Print Language: Kazakh Stand Alone Forms: Patient Portal Info Letter CHANDLER/TIM Supervising Physician CHANDLER/TIM Supervising Physician: Dr. Obando
[2024-11-28] MEDS: RINGERS LACTATED 1000 ML 1,000 ML 999 ML IV (20:49)
[2024-11-28 20:53] LABS: Base Excess, Venous 2 (-3-3); O2 Saturation, Venous 77 % (96-97); PCO2, Venous 52 mmHg (36-56); PO2, Venous 42 mmHg (15-58); pH, Venous 7.35 (7.33-7.66)
[2024-11-28 20:56] LABS: Basophils # (Auto) 0.1 Thou/mm3 (0.0-0.2); Basophils % (Auto) 1 % (0-2.5); Eosinophils # (Auto) 0.2 Thou/mm3 (0.0-0.5); Eosinophils % (Auto) 3 % (0-10); Hematocrit 42.9 % (41.0-53.0); Hemoglobin 15.1 g/dL (13.5-16.0); Immature Granulocytes % (Auto) 2 % (0-0); Immature Granulocytes Auto 0.17 Thou/mm3 (0.00-0.00); Lymphocytes % (Auto) 27 % (10-50); Mean Corpuscular HGB Conc 35.2 g/dl (31.0-37.0); Mean Corpuscular Hemoglobin 29.2 pg (25.0-35.0); Mean Corpuscular Volume 83 fL (80-100); Monocytes # (Auto) 0.6 Thou/mm3 (0.0-0.8); Monocytes % (Auto) 8 % (0-12); Neutrophils # (Auto) 4.3 Thou/mm3 (1.8-7.7); Neutrophils % (Auto) 59 % (37-80); Nucleated Red Blood Cell % 0 /100 WBC (0); Platelet Count 249 Thou/mm3 (140-440); RDW Standard Deviation 38.4 fL (35.1-43.9); Red Blood Count 5.18 Miln/mm3 (4.50-5.90); White Blood Count 7.4 Thou/mm3 (3.8-10.6)
[2024-11-28 21:05] LABS: Beta Hydroxybutyrate 0.1 mmol/L (<0.6)
[2024-11-28 21:19] LABS: Glucose Estimated Average 209 mg/dL (80-131); Hemoglobin A1C 8.9 % Hgb (4.8-6.0)
[2024-11-28 21:22] LABS: Alanine Aminotransferase 65 U/L (10-49); Albumin, Serum 4.3 gm/dL (3.5-5.0); Albumin/Globulin Ratio 1.6 (1.2-2.2); Alkaline Phosphatase 316 U/L (46-116); Anion Gap 10 (7-16); Aspartate Amino Transferase 25 U/L (0-34); BUN/Creatinine Ratio 9 Ratio (12-20); Bilirubin,Total 0.3 mg/dL (0.3-1.2); Blood Urea Nitrogen 14 mg/dL (9-23); Calcium 9.2 mg/dL (8.3-10.6); Calcium (Corrected) 9.2 mg/dL (8.5-10.1); Carbon Dioxide 28.7 mMol/L (20.0-31.0); Chloride 93 mMol/L (98-107); Creatinine (Component) 1.5 mg/dL (0.6-1.3); Estimated Creatinine Clearance 61.8 mL/min (>60); Globulin 2.7 gm/dL (2.3-3.5); Lipase 97 U/L (12-53); Magnesium 2.1 mg/dL (1.6-2.6); Osmolality,Calculated 294 (275-295); Phosphorous 3.3 mg/dL (2.4-5.1); Potassium 4.2 mMol/L (3.4-5.1); Sodium 132 mMol/L (136-145); Uric Acid 5.4 mg/dL (3.7-9.2); eGFR 57 See Note
[2024-11-28 21:25] LABS: Glucose 619 mg/dL (74-106)
[2024-11-28 22:10] LABS: Collection Type, Urine Clean Catch; RBC,Urine 0 /hpf (0-3); WBC,Urine 0 /hpf (0-5)
[2024-11-28 22:18] LABS: Bilirubin,Urine Negative (Negative); Blood,Urine Negative (Negative); Clarity,Urine Clear (Clear/Hazy); Color,Urine Colorless (Lt Yel-Yel); Culture Indicated,Urine Not Indicated; Glucose, Urine 4+ (Negative); Ketones,Urine Negative (Negative); Leukocyte Esterase,Urine Negative (Negative); Nitrite,Urine Negative (Negative); PH,Urine 6.5 (5.0-7.0); Protein,Urine Negative (Neg - Trace); Specific Gravity,Urine 1.029 (1.001-1.035); Squamous Epithelial Cell,Urine < 1 /hpf (0-5); Urobilinogen,Urine Negative mg/dL (0.0-1.0)
[2024-11-28 22:27] LABS: Amphetamine/Methamp Scrn,U Negative (Negative); Barbiturate Screen,Urine Negative (Negative); Benzodiazepines Screen,Urine Negative (Negative); Benzoylecgonine Screen, Ur Negative (Negative); Fentanyl Screen,Urine Negative (Negative); Opiate Screen,Urine Negative (Negative); THC Screen,Urine Negative (Negative)
[2024-11-28] MEDS: INSULIN HUM REGULAR 1 UNIT/0.01 ML (PER UNIT) 10 UNIT SC (22:38)
[2024-11-28] MEDS: KETOROLAC INJ 30 MG/ML VIAL IVP (22:48)
[2024-11-28] MEDS: SODIUM CHLORIDE 0.9% 1000 ML 1,000 ML 999 ML IV (22:53)
[2024-11-28 23:11] LABS: Strep A Rapid Negative (Negative)
== END 2024-11-29 00:51 | disposition home or self-care (01) ==
PROVIDERS: Physician Assistant; Emergency Provider Emergency Medicine
DX: E11.65 Type 2 diabetes mellitus with hyperglycemia (principal); J06.9 Acute upper respiratory infection, unspecified; M10.9 Gout, unspecified
CPT/HCPCS: 36415; 80053; 80307; 81001; 82010; 82803; 83036; 83690; 83735; 84100; 84550; 85025; 87400; 87651; 87811; 96361; 96372; 96374; 99284; J1815; J1885; J7030; J7120